=== PATIENT | male | born 1955 | race Caucasian/White ===

== ENCOUNTER 2017-10-12 21:43 | Emergency (ER) | payer BC, MEDICAID ==
[2017-10-12] MEDS ORDERED: Lidocaine 1% 30 ML SDV INJECT ONE (21:44)
[2017-10-12] MEDS ORDERED: Ketorolac 60 MG/2 ML SDV IM ONE (21:59)
[2017-10-12] MEDS ORDERED: Diphtheria,Pertussis(Acell),Tetanus Vaccine 0.5 ML SDV IM ONE (22:25)
--- NOTE | 2017-10-12 23:26 | EDM.PDOC ---
ED HPI GENERAL MEDICAL PROBLEM - General Chief Complaint: Laceration Stated Complaint: CUT LEFT HAND FINGER Time Seen by Provider: 10/12/17 21:55 Source of Information: Reports: Patient History Limitations: Reports: No Limitations - History of Present Illness INITIAL COMMENTS - FREE TEXT/NARRATIVE: c/o cut L index finger working on tractor, a wire cut his finger as he was stepping off of the tractor last Td >5y ago Left 2-Index finger Pain Score (Numeric/FACES): 3 - Related Data Allergies Allergy/AdvReac Type Severity Reaction Status Date / Time No Known Allergies Allergy Verified 10/19/15 05:47 Home Meds: Home Meds Ibuprofen [Motrin] 600 mg PO TID PRN #30 tab 10/19/15 [Rx] Simvastatin [Zocor] 20 mg PO ASDIRECTED 10/19/15 [History] Tamsulosin HCl [Flomax] 0.4 mg PO DAILY #7 cap.er.24h 10/19/15 [Rx] oxyCODONE HCl/Acetaminophen [Percocet 5-325 mg Tablet] 1 each PO Q6HR PRN #16 tablet 10/19/15 [Rx] Amoxicillin/Clavulanate K [Augmentin 875-125 MG] 1 tab PO BID #10 tablet [Rx] Past Medical History - Past Health History Medical/Surgical History: Denies Medical/Surgical History Social & Family History - Family History Family Medical History: Noncontributory - Tobacco Use Smoking Status *Q: Never Smoker - Caffeine Use Caffeine Use: Reports: Coffee ED ROS GENERAL - Review of Systems Review Of Systems: See Below Constitutional: Reports: No Symptoms HEENT: Reports: No Symptoms Respiratory: Reports: No Symptoms Cardiovascular: Reports: No Symptoms Endocrine: Reports: No Symptoms GI/Abdominal: Reports: No Symptoms : Reports: No Symptoms Musculoskeletal: Reports: No Symptoms Skin: Reports: Wound Neurological: Reports: No Symptoms Psychiatric: Reports: No Symptoms Hematologic/Lymphatic: Reports: No Symptoms Immunologic: Reports: No Symptoms ED EXAM, SKIN/RASH Exam: See Below Exam Limited By: No Limitations General Appearance: Alert, WD/WN, No Apparent Distress Respiratory/Chest: No Respiratory Distress Cardiovascular: Regular Rate, Rhythm Extremities: Other (R index finger with 2.5 cm curvilinear lac just above the PIP on the volar aspect, extends onto both medial and lateral aspect, a little more on the lateral aspect, there is some numbness at the tip of the finger on the lasteral aspect, 1% lido without with a #27 needle and 8 cc volume used for finger block after base thumb cleaned x 9 with betadine, alc preps x 4, complete analgesia, wound was clean, some oil on skin but none in wound, no f.b. , cleaned gauze and NS x 8, bleeder sprayed 6" a couple of times, fat layer exposed, no involvement of joint capsule, pt could flex/ext all joints, a flexor tendon was partial transected but still intact, 4-0 Vicryl x 2 used to strength the tendon, remainder of wound explored and was neg, skin closed with 3 -0 Ethilon x 9 with good apposition of edges) Course - Vital Signs Last Recorded V/S: Last Vital Signs Temp 36.8 C 10/12/17 21:43 Pulse 73 10/12/17 21:43 Resp 20 10/12/17 21:43 BP 149/88 H 10/12/17 21:43 Pulse Ox 96 10/12/17 21:43 - Orders/Labs/Meds Orders: Active Orders 24 hr Category Date Time Status Vaccines to be Administered [RC] PER UNIT ROUTINE Care 10/12/17 22:25 Ordered Meds: Medications Discontinued Medications Generic Name Dose Route Start Last Admin Trade Name Venkata PRN Reason Stop Dose Admin Diphtheria/Tetanus/Acell Pertussis 0.5 ml 10/12/17 22:25 10/12/17 22:33 Adacel IM 10/12/17 22:26 0.5 ml .ONCE ONE Administration Ketorolac Tromethamine 60 mg 10/12/17 21:59 10/12/17 22:33 Toradol IM 10/12/17 22:00 60 mg ONETIME ONE Administration Departure - Departure Time of Disposition: 23:26 Disposition: Home, Self-Care 01 Condition: Good Clinical Impression: Finger laceration involving tendon Qualifiers: Encounter type: initial encounter Qualified Code(s): S61.219A - Laceration without foreign body of unspecified finger without damage to nail, initial encounter; S66.929A - Laceration of unspecified muscle, fascia and tendon at wrist and hand level, unspecified hand, initial encounter - Discharge Information Prescriptions: Amoxicillin/Clavulanate K [Augmentin 875-125 MG] 1 tab PO BID #10 tablet Instructions: Laceration Care, Adult, Tendon Repair Referrals: PCP,Not In Area [Primary Care Provider] - Additional Instructions: Keep clean and dry and covered with a dressing. Use splint for 2 weeks, then begin to use finger so that it does not stiffen. You should have full range of motion at 3 weeks. Have sutures removed in 1 week by your primary care physician. To decrease risk of infection, take Augmentin 875/125 mg 1 tab 2 times a day for 5 days. See a physician the same day for any increase in redness, swelling, pain, warmth , fever or drainage. - My Orders Last 24 Hours: My Active Orders 10/12/17 22:25 Vaccines to be Administered [RC] PER UNIT ROUTINE - Assessment/Plan Last 24 Hours: My Active Orders 10/12/17 22:25 Vaccines to be Administered [RC] PER UNIT ROUTINE
[2017-10-12] MEDS ORDERED: Amoxicillin/Clavulanate K 875-125 MG Tab PO ONE (23:28)
[2017-10-12 23:55] VITALS: BP 129/83
== END 2017-10-12 23:55 | disposition home or self-care (01) ==
LOC: FB.ED 21:43
DX: S56.422A Laceration of extensor muscle, fascia and tendon of left index finger at forearm level, initial encounter (principal); W45.8XXA Other foreign body or object entering through skin, initial encounter; Z79.899 Other long term (current) drug therapy; Z23 Encounter for immunization
CPT/HCPCS: 12001; 90471; 90715; 96372; 99283; A9270; J1885; 90472